=== PATIENT | male | born 1995 | race Caucasian/White ===

== ENCOUNTER → 2024-01-11 | Emergency (ER) | payer OTHER ==
[~2024-01-11] MED LIST: KETOROLAC 30 MG/ML INJ ONE; MAGNESIUM SULFATE 1 gm IVPB 1 GM/100 ML BAG IV ONE; MORPHINE 4 MG/ML SYR ONE; NA CHLORIDE 0.9% 1,000 ML ONE; ONDANSETRON 4 MG/2 ML VIAL ONE; TAMSULOSIN 0.4 MG SR CAP ONE
[2024-01-11 14:20] LABS: Absolute Lymphocytes (CBC) 3.4 K/uL (0.7-4.9); Hematocrit 43.4 % (39.6-49.0); Lymphocytes % 27.8 % (15.3-44.8); MCV 89.4 fL (80-100); MPV 7.8 fL (7.6-11.3); Platelets 416 thou/uL (152-406); RBC Red Blood Cell Count 4.85 M/uL (4.33-5.43)
[2024-01-11 14:37] LABS: Albumin 3.7 g/dL (3.4-5.0); Bilirubin Total 0.5 mg/dL (0.2-1.0); Protein, Total 8.2 g/dL (6.4-8.2)
--- NOTE | 2024-01-11 14:40 | RAD REPORT ---
EXAM DESCRIPTION: CT - Stone Protocol - 01/11/2024 2:18 pm CLINICAL HISTORY: Abdominal pain. Right flank pain COMPARISON: None. TECHNIQUE: Computed axial tomography of the abdomen pelvis was obtained without oral or IV contrast. Lack of IV and oral contrast limits evaluation of solid organs, appendix, bowel, and vessels. Lopez l reformatted images were obtained and reviewed. All CT scans are performed using dose optimization technique as appropriate and may include automated exposure control or mA/KV adjustment according to patient size. FINDINGS: Mild right hydronephrosis. A renal calculus is not seen. A 3.5 millimeter calculus right U VJ The liver, spleen, pancreas and adrenals appear grossly normal There is no evidence of diverticulitis. Appendectomy A 1.4 centimeter subpleural right lower lobe pulmonary nodule IMPRESSION: 3.5 millimeter calculus right UVJ results in mild right hydronephrosis A 1.4 centimeter right lower lobe subpleural pulmonary nodule. PET scan are recommended for further e valuation
[2024-01-11 15:03] LABS: Potassium 4.1 mEq/L (3.5-5.1)
[2024-01-11 16:59] LABS: Urine Bacteria None Seen /HPF (<20); Urine Bilirubin NEGATIVE (Negative); Urine Blood 3+ (OVER) (Negative); Urine Clarity Turbid (Clear); Urine Color Yellow (Yellow); Urine Glucose NEGATIVE (Negative); Urine Mucus 2+ /HPF (None Seen); Urine Protein TRACE (Negative); Urine RBC >50 /HPF (None Seen); Urine Urobilinogen Normal (Normal)
--- NOTE | 2024-01-11 17:01 | ER ---
Nurse's Notes [facility] Name: Harsh Burnette Age: 28 yrs Sex: Male : 1995 Arrival Date: 01/11/2024 Time: 13:45 Bed 12 Private MD: Diagnosis: Calculus of kidney with calculus of ureter Presentation: 01/11 13:58 Chief complaint: Patient states: ABD PAIN X 30 MIN RIGHT UPPER RADIATES TO CENTER ABD. db DENIES URINARY SYMPTOMS. Coronavirus screen: Client denies travel out of the [place] in the last 14 days. At this time, the client does not indicate any symptoms associated with coronavirus-19. Ebola Screen: Patient negative for fever greater than or equal to 101.5 degrees Fahrenheit, and additional compatible Ebola Virus Disease symptoms Patient denies exposure to infectious person. Patient denies travel to an Ebola-affected area in the 21 days before illness onset. No symptoms or risks identified at this time. Initial Sepsis Screen: Does the patient meet any 2 criteria? No. Patient's initial sepsis screen is negative. Does the patient have a suspected source of infection? No. Patient's initial sepsis screen is negative. Risk Assessment: Do you want to hurt yourself or someone else? Patient reports no desire to harm self or others. Onset of symptoms was January 11, 2024 at 13:30. 13:58 Method Of Arrival: Ambulatory db 13:58 Acuity: HANNAH 3 db Triage Assessment: 14:01 General: Appears in no apparent distress. uncomfortable, Behavior is cooperative. Pain: db Complains of pain in abdomen. GI: Abdomen is flat, non-distended, Reports upper abdominal pain, nausea. Historical: - Allergies: 14:01 No Known Allergies; db - Home Meds: 14:01 None [Active]; db - PMHx: 14:01 None; db - PSHx: 14:01 Appendectomy; RIGHT SHOULDER; db - Immunization history:: Adult Immunizations unknown, Client reports having NOT received the Covid vaccine. - Social history:: Smoking status: Patient denies any tobacco usage or history of. Screenin:09 [facility] ED Fall Risk Assessment (Adult) History of falling in the last 3 months, db including since admission No falls in past 3 months (0 pts) Score/Fall Risk Level 0 - 2 = Low Risk Oriented to surroundings, Maintained a safe environment. Abuse screen: Denies threats or abuse. Denies injuries from another. Nutritional screening: No deficits noted. Tuberculosis screening: No symptoms or risk factors identified. Assessment: 14:08 Reassessment: PT TO CT. db 14:09 Reassessment: PT APPEARS DIAPHORETIC. SKIN MOIST TO TOUCH. db 15:02 Reassessment: Patient and/or family updated on plan of care and expected duration. Pain ap3 level reassessed. General: Appears uncomfortable, Behavior is calm, cooperative, appropriate for age. Pain: Complains of pain in right lower quadrant Pain began suddenly. Neuro: Level of Consciousness is awake, alert, obeys commands, Oriented to person, place, time, situation. Cardiovascular: Patient's skin is warm and dry. Respiratory: Airway is patent Respiratory effort is even, unlabored, Respiratory pattern is regular, symmetrical. : Reports pain in right flank(s). Vital Signs: 13:58 BP 133 / 93; Pulse 74; Resp 18; Temp 97.8(O); Pulse Ox 96% ; Weight 138.35 kg; Height 6 db ft. 2 in. ; Pain 9/10; 13:58 Body Mass Index 39.16 (138.35 kg, 187.96 cm) db 13:58 Pain Scale: Adult db ED Course: 13:47 Patient arrived in ED. im 13:48 Marisela Aiken FNP-C is PHCP. kb 13:48 Abdulaziz Eubanks DO is Attending Physician. kb 14:01 Triage completed. db 14:01 Arm band placed on Patient placed in waiting room. db 14:08 Marichuy Mccurdy, RN is Primary Nurse. db 14:08 Inserted saline lock: 20 gauge in right antecubital area, using aseptic technique. db Blood collected. 14:19 CT Stone Protocol In Process Unspecified. EDMS 14:25 Patient placed in an exam room, on a stretcher. ll1 15:04 Patient has correct armband on for positive identification. Bed in low position. Call ap3 light in reach. Side rails up X 1. Pulse ox on. NIBP on. Administered Medications: 14:25 Drug: NS 0.9% IV 1000 ml IV at 1 bolus Per protocol; 1000 mL bolus Route: IV; Rate: 1 db bolus; Site: right antecubital; 16:00 Follow up: Response: No adverse reaction; IV Status: Completed infusion; IV Intake: ph 1000ml 14:27 Drug: TORadol - Ketorolac IVP 15 mg IVP once Route: IVP; Site: right antecubital; db 17:01 Follow up: Response: No adverse reaction ph 14:28 Drug: Ondansetron IVP 4 mg IVP once; over 2 minutes Route: IVP; Site: right antecubital;db 17:01 Follow up: Response: No adverse reaction ph 15:00 Drug: Magnesium Sulfate IVPB 1 grams IVPB once over 1 hrs Route: IVPB; Infused Over: 1 ap3 hrs; Site: right antecubital; 16:00 Follow up: Response: No adverse reaction; IV Status: Completed infusion ph 15:00 Drug: Flomax PO 0.4 mg PO once Route: PO; ap3 17:00 Follow up: Response: No adverse reaction ph 17:00 Not Given (Patient Refused; Pain resolvedd): morphineor iv 4 mg IVP once over 4 mins ph Medication: 15:04 VIS not applicable for this client. ap3 Intake: 16:00 IV: 1000ml; Total: 1000ml. ph Outcome: 17:00 Discharge ordered by . kb 17:14 Patient left the ED. ph Signatures: Dispatcher [employer] EDMS Marisela Aiken, LACI LEIGH-Jane Galindo RN RN ph Prokisch, Amanda, RN RN ap3 Henry Childers RN RN ll1 Marichuy Mccurdy RN RN Sally Alves
--- NOTE | 2024-01-11 17:01 | EDPHYS ---
Physician Documentation [facility] Name: Harsh Burnette Age: 28 yrs Sex: Male : 1995 Arrival Date: 01/11/2024 Time: 13:45 Bed 12 Private MD: ED Physician Abdulaziz Eubanks HPI: 01/11 14:20 This 28 yrs old Male presents to ER via Ambulatory with complaints of Abdominal Pain. 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 Denies urinary symptoms, vomiting, diarrhea, fever. States he has had some intermittent nausea. . Historical: - Allergies: 14:01 No Known Allergies; db - Home Meds: 14:01 None [Active]; db - PMHx: 14:01 None; db - PSHx: 14:01 Appendectomy; RIGHT SHOULDER; db - Immunization history:: Adult Immunizations unknown, Client reports having NOT received the Covid vaccine. - Social history:: Smoking status: Patient denies any tobacco usage or history of. ROS: 14:19 Constitutional: Negative for fever, chills, and weight loss, kb 14:19 Abdomen/GI: Positive for abdominal pain, nausea, 14:19 Back: Positive for flank pain, on the right, 14:19 All other systems are negative, Exam: 14:19 Constitutional: This is a well developed, well nourished patient who is awake, alert, kb and in no acute distress. Head/Face: Normocephalic, atraumatic. ENT: Moist Mucous membranes Cardiovascular: Regular rate Respiratory: Respirations even and unlabored. No increased work of breathing. Talking in full sentences Abdomen/GI: Soft, non-tender. No distention Skin: Warm, dry with normal turgor. Normal color. MS/ Extremity: Pulses equal, no cyanosis. Neurovascular intact. Full, normal range of motion. Neuro: Awake and alert, GCS 15, oriented to person, place, time, and situation. Moves all extremities. Normal gait. 14:19 Back: CVA tenderness, that is mild, is noted on the right, Vital Signs: 13:58 BP 133 / 93; Pulse 74; Resp 18; Temp 97.8(O); Pulse Ox 96% ; Weight 138.35 kg; Height 6 db ft. 2 in. ; Pain 9/10; 13:58 Body Mass Index 39.16 (138.35 kg, 187.96 cm) db 13:58 Pain Scale: Adult db MDM: 13:48 Patient medically screened. kb 14:19 Data reviewed: vital signs, nurses notes. kb 14:20 Differential diagnosis: nephrolithiasis, pyelonephritis, UTI. kb 16:59 Counseling: I had a detailed discussion with the patient and/or guardian regarding the kb historical points, exam findings, and any diagnostic results supporting the discharge/admit diagnosis, lab results, radiology results, the need for outpatient follow up, a urologist, to return to the emergency department if symptoms worsen or persist or if there are any questions or concerns that arise at home. 01/11 14:00 Order name: CBC with Diff; Complete Time: 14:25 kb 01/11 14:00 Order name: CMP; Complete Time: 15:03 kb 01/11 14:00 Order name: Lipase; Complete Time: 15:03 kb 01/11 15:57 Order name: Urinalysis w/ reflexes; Complete Time: 16:59 kb 01/11 14:00 Order name: CT Stone Protocol; Complete Time: 14:40 kb 01/11 14:00 Order name: IV Saline Lock; Complete Time: 14:08 kb 01/11 14:00 Order name: Labs collected and sent; Complete Time: 14:08 kb Administered Medications: 14:25 Drug: NS 0.9% IV 1000 ml IV at 1 bolus Per protocol; 1000 mL bolus Route: IV; Rate: 1 db bolus; Site: right antecubital; 16:00 Follow up: Response: No adverse reaction; IV Status: Completed infusion; IV Intake: ph 1000ml 14:27 Drug: TORadol - Ketorolac IVP 15 mg IVP once Route: IVP; Site: right antecubital; db 17:01 Follow up: Response: No adverse reaction ph 14:28 Drug: Ondansetron IVP 4 mg IVP once; over 2 minutes Route: IVP; Site: right antecubital;db 17:01 Follow up: Response: No adverse reaction ph 15:00 Drug: Magnesium Sulfate IVPB 1 grams IVPB once over 1 hrs Route: IVPB; Infused Over: 1 ap3 hrs; Site: right antecubital; 16:00 Follow up: Response: No adverse reaction; IV Status: Completed infusion ph 15:00 Drug: Flomax PO 0.4 mg PO once Route: PO; ap3 17:00 Follow up: Response: No adverse reaction ph 17:00 Not Given (Patient Refused; Pain resolvedd): morphineor iv 4 mg IVP once over 4 mins ph Disposition: 14:44 I was immediately available on-site in the Emergency Department for consultation in the dc3 care of the patient. Disposition Summary: 01/11/24 17:00 Discharge Ordered Notes: Location: Home kb Condition: Stable kb Diagnosis - Calculus of kidney with calculus of ureter kb Followup: kb - With: Emergency Department - When: As needed - Reason: Worsening of condition Followup: kb - With: Private Physician - When: 2 - 3 days - Reason: Recheck today's complaints, Continuance of care, Re-evaluation by your physician Discharge Instructions: - Discharge Summary Sheet kb - Kidney Stones, [id number] kb - Dietary Guidelines to Help Prevent Kidney Stones kb Forms: - Medication Reconciliation Form kb - Thank You Letter kb - Antibiotic Education kb - Prescription Opioid Use kb - Patient Portal Instructions kb - Leadership Thank You Letter kb Prescriptions: - Flomax 0.4 mg Oral capsule - take 1 capsule ORAL route daily; 10 capsule; Refills: 0, Product Selection kb Permitted - Zofran 4 mg Oral tablet - take 1 tablet ORAL route every 6 hours As needed; 12 tablet; Refills: 0, kb Product Selection Permitted - Diclofenac Sodium 75 mg Oral tablet, delayed release (enteric coated) - take 1 tablet ORAL route 2 times per day As needed; 30 tablet; Refills: 0, kb Product Selection Permitted Signatures: Dispatcher [employer] Marisela Omer, REESE-C Amber Jeff RN RN ap3 Abdulaziz Eubanks DO DO ms3 Marichuy Mccurdy RN RN db Jane Goldman RN ph
[2024-01-11 17:34] VITALS: BP 133/93; TEMP 97.8; O2SAT 96
== END ==
LOC: ER 13:45
DX: N20.2 Calculus of kidney with calculus of ureter (principal); Z28.310 Unvaccinated for COVID-19
CPT/HCPCS: 85025; 81001; 36415; 83690; 80053; 76377; 74176; J3475; J2405; J7030

== ENCOUNTER 2025-03-12 07:12 | Day surgery (SDC) | payer OTHER ==
[2025-03-12] MEDS: Ringers Lactate 1,000 ML IV ONE (07:40)
[2025-03-12] MEDS ORDERED: propofoL 200 MG/20 ML VIAL IV ONE (08:12)
[2025-03-12] MEDS ORDERED: LIDOCAINE 1% MPF 5 ML VIAL ONE ×2 (08:12→09:11)
[2025-03-12 09:57] VITALS: O2SAT 100
[2025-03-12 10:18] VITALS: BP 116/67; TEMP 98
== END 2025-03-12 09:49 | disposition home or self-care (01) ==
LOC: OR 07:12
PROVIDERS: ATTEND Surgery
PROC: 0DBN8ZX Excision of Sigmoid Colon, Via Natural or Artificial Opening Endoscopic, Diagnostic (ICD-10-PCS; principal; 2025-03-12 08:30)
DX: K62.5 Hemorrhage of anus and rectum (principal); K63.5 Polyp of colon; Q27.33 Arteriovenous malformation of digestive system vessel; K64.4 Residual hemorrhoidal skin tags; K64.8 Other hemorrhoids
CPT/HCPCS: 88305; 45384; J2704; J2003; J7120